=== PATIENT | male | born 1960 | race Caucasian/White ===

== ENCOUNTER 2018-06-23 06:24 | Emergency (ER) | payer MEDICAID ==
--- NOTE | 2018-06-23 07:08 | EDPHY ---
H & P Time Seen by Provider: 06/23/18 07:08 HPI/ROS: CHIEF COMPLAINT: "I want you to give me the weekly cardiograph test" HISTORY OF PRESENT ILLNESS: 58-year-old man has a history of bipolar disorder presents because he"wants to get my care plan transferred up here,"to [place]. Patient says he was recently hospitalized for rapid heart rate and was discharged a couple of weeks ago, his medications bottles include digoxin and Eliquis but he does not know the details. He does not know specifically what hospital but the bottles have a [place] address. Today he denies chest pain shortness of breath palpitations dizziness or lightheadedness or syncope. He states his bipolar disease is stable and denies hallucinations suicidal ideation or homicidal ideation. Tells me wants to get his follow-up cardiology plan transfer to [place]. REVIEW OF SYSTEMS: Eye: no change in vision ENT: no sore throat Cardiac: no chest pain or syncope Pulmonary: no cough or SOB Abdomen: no vomiting, diarrhea, abdominal pain Musculoskeletal: no back pain Skin: no rash Neuro: no headache Constitutional: no fever : no urinary symptoms A comprehensive 10 point review of systems is otherwise negative aside from elements mentioned in the history of present illness. PAST MEDICAL HISTORY: Bipolar disorder, left tibia fracture with hardware Social history: Homeless since mid May General Appearance: Alert and conversant, cooperative. Eyes: No scleral icterus. ENT, Mouth: Normal mucous membranes. Respiratory: Normal respiratory effort, breath sounds equal, lungs are clear to auscultation. Cardiovascular: Regular rate and rhythm. No murmur, no extra heart sounds. Gastrointestinal: Abdomen is soft and non tender. Neurological: Alert, face symmetric, normal motor and sensory in extremities. Skin: Warm and dry, no rashes. Musculoskeletal: No peripheral edema. Psychiatric: Not agitated. Cooperative. He has rambling speech and is very tangential talking about Trumna Polis and his father and his girlfriend and being homeless. Denies suicidal or homicidal ideation, not hallucinating. Emergency Department course/MDM: Patient presents without any acute evidence of medical or surgical emergent condition. 1000: Case management visiting with the patient to facilitate outpatient follow -up in [place]. He does not have evidence of atrial fibrillation or atrial flutter on symptoms or EKG today. He does not meet criteria for mental health hold for his bipolar disorder. He does not have any medical complaints at this time. Case management requesting mental health evaluation which is ordered. 1423: Recommendation of mental health bitumen plant operator to discharge the patient. He does not appear to meet criteria for involuntary 72 hr mental health hold. Smoking Status: Never smoked Constitutional: Initial Vital Signs Temperature (C) 36.9 C 06/23/18 06:33 Heart Rate 91 06/23/18 06:33 Respiratory Rate 18 06/23/18 06:33 Blood Pressure 105/76 06/23/18 06:33 O2 Sat (%) 97 06/23/18 06:33 O2 Delivery Mode Room Air Allergies/Adverse Reactions: No Known Allergies Allergy (Verified 06/23/18 06:34) Home Medications: Medication Instructions Recorded Benztropine Mesylate [Cogentin (*)] 2 mg PO 06/23/18 Divalproex [Depakote] 250 mg PO 06/23/18 Ibuprofen 600 mg PO 06/23/18 Metoprolol Tartrate [Lopressor 50 50 mg PO BID 06/23/18 mg (*)] OLANZapine [Olanzapine] 15 mg PO 06/23/18 Medical Decision Making - Diagnostics EKG Interpretation: 12-lead EKG interpreted by me; official reading is in computer system. My interpretation is sinus rhythm rate 100 with ventricular trigeminy. QTC slightly prolonged. No evidence of atrial fibrillation or flutter. No ischemic changes. - Data Points Laboratory Results: Laboratory Results 06/23/18 11:00 06/23/18 11:00 06/23/18 06/23/18 06/23/18 12:00 11:00 11:00 WBC 7.32 10^3/uL 10^3/uL (3.80-9.50) RBC 4.22 10^6/uL L 10^6/uL (4.40-6.38) Hgb 13.7 g/dL g/dL (13.7-17.5) Hct 40.1 % % (40.0-51.0) MCV 95.0 fL fL (81.5-99.8) MCH 32.5 pg pg (27.9-34.1) MCHC 34.2 g/dL g/dL (32.4-36.7) RDW 14.0 % % (11.5-15.2) Plt Count 228 10^3/uL 10^3/uL (150-400) MPV 11.0 fL fL (8.7-11.7) Neut % (Auto) 52.0 % % (39.3-74.2) Lymph % (Auto) 34.4 % % (15.0-45.0) Reynolds % (Auto) 10.5 % % (4.5-13.0) Eos % (Auto) 2.0 % % (0.6-7.6) Baso % (Auto) 0.8 % % (0.3-1.7) Nucleat RBC Rel Count 0.0 % % (0.0-0.2) Absolute Neuts (auto) 3.80 10^3/uL 10^3/uL (1.70-6.50) Absolute Lymphs (auto) 2.52 10^3/uL 10^3/uL (1.00-3.00) Absolute Monos (auto) 0.77 10^3/uL 10^3/uL (0.30-0.80) Absolute Eos (auto) 0.15 10^3/uL 10^3/uL (0.03-0.40) Absolute Basos (auto) 0.06 10^3/uL 10^3/uL (0.02-0.10) Absolute Nucleated RBC 0.00 10^3/uL 10^3/uL (0-0.01) Immature Gran % 0.3 % % (0.0-1.1) Immature Gran # 0.02 10^3/uL 10^3/uL (0.00-0.10) Sodium 137 mEq/L mEq/L (135-145) Potassium 3.5 mEq/L mEq/L (3.5-5.2) Chloride 101 mEq/L mEq/L (97-110) Carbon Dioxide 29 mEq/l mEq/l (22-31) Anion Gap 7 mEq/L mEq/L (6-14) BUN 18 mg/dL mg/dL (7-23) Creatinine 0.9 mg/dL mg/dL (0.7-1.3) Estimated GFR > 60 Glucose 99 mg/dL mg/dL (70-100) Calcium 8.9 mg/dL mg/dL (8.5-10.4) Urine Opiates Screen NEGATIVE (NEGATIVE) Urine Barbiturates NEGATIVE (NEGATIVE) Ur Phencyclidine Scrn NEGATIVE (NEGATIVE) Ur Amphetamine Screen NEGATIVE (NEGATIVE) U Benzodiazepines Scrn NEGATIVE (NEGATIVE) Urine Cocaine Screen NEGATIVE (NEGATIVE) U Marijuana (THC) Screen NEGATIVE (NEGATIVE) Ethyl Alcohol < 10 mg/dL mg/dL (0-10) Departure - Departure Disposition: Home, Routine, Self-Care Clinical Impression: History of atrial flutter Bipolar disorder Qualifiers: Active/Remission status: remission status unspecified Qualified Code(s): F31.9 - Bipolar disorder, unspecified Condition: Good Instructions: Additional Information, Bipolar Disorder (ED) Referrals: Grant Cooley MD [Medical Doctor] - As per Instructions [facility],. [Clinic] - As per Instructions
--- NOTE | 2018-06-23 07:50 | CPEKG ---
Test Reason : OPEN Blood Pressure : / mmHG Vent. Rate : 102 BPM Atrial Rate : 091 BPM P-R Int : 145 ms QRS Dur : 082 ms QT Int : 386 ms P-R-T Axes : 069 013 064 degrees QTc Int : 503 ms Sinus tachycardia Ventricular trigeminy Minimal ST depression, anterolateral leads Prolonged QT interval Confirmed by Mo Rhoades ([id number]) on 06/23/2018 7:50:00 AM Referred By: Confirmed By:Mo Rhoades
[2018-06-23 11:12] LABS: PLATELET COUNT 228 10^3/uL (150-400)
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
[2018-06-23 14:37] VITALS: BP 123/83
--- NOTE | 2018-06-23 15:21 | ASMTTLCEVL ---
TLC Evaluation - Basic Information Evaluation Start Date and 06/23/2018 01:45 PM Time Hospital Status Answers: Voluntary Patient statement Notes: "I'm here because I had some questions about my medication'" Narrative Notes: The patient is a 58 y/o male with a hx of Bi-polar DIsorder. He is homeless and living in [place], [place]. The patient presented voluntarily to the ED for a heart condition and questions regardingmedication that had been prescribed at [facility] where he had been a pt until 06/21. According to [facility] staff, the patient presented to the ED for a heart condition. The patient presented as manic, delusional, and paranoid. His speech is rapid, pressured, and rambling. 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 He reported recent medication changes. He reported getting "two hours" of sleep yesterday. When interviewed by this senior writer following pt's 2 hour nap, he was oriented to time, place and person. He denied suicidal, parasuicidal, homicidal ideation, urges or behaviors. Pt denied any current auditory/visual hallucinations. He reports that he came to the hospital a he had some questions about his meds. If discharged, pt would go to the [facility] and followup with MD bee. He is an open client of [facility]. Per [facility] worker, Barbi, the patient was seen by Dr. Kilgore on 06/03/18. He was also evaluated by a [facility] seismic prospecting supervisor, Bren Rene who recommend ATU level of care (See fax attached [facility] report). She reported recent medication changes including increasing Depakote and decreasing Lamictal. The patient has been sober from [facility] for two years; he replased on 05/01/18. The patient admitted to [facility] on 06/09/18 and was discharged on 06/21/18. The nurse at [facility] reported that the patient denied premature discharge stating that he was "ready. cheerful, and had a plan." She confirmed with the psychiatrist, Sulma Colby MD that the patient was appropriate for discharge. The nurse reported that he planned to catch a bus to [place]. At this time, pt does not meet the criteria for in-pt psychiatric hospitalization as he does not appear to be in imminent danger for self harm or harm to others and does not appear to be gravely disabled. Diagnosis History Notes: Pt has a long history of Mental Illness since his college years. He is daignosed with Bi-polar Disorder Prior suicide attempts Notes: Pt denies Prior hospitalizations Notes: Many past hospitalizations. Was at [facility] until 06/21/2018. Treatment Responses Notes: Pt reports that his medication is helpful History of violence Notes: Pt denies Therapist: [facility] Psychiatrist: Dr. Kilgore Medications (name, dosage, route, freq uency) Notes: Lamictal, 150mg, once, BID Depakote, 500mg, ER, two tablets, HS & 250mg, one tablet, HS Zyprexa Allergies/Reaction Notes: Denies Sleep Notes: Has some difficulty falling asleep Appetite Notes: Good Medical/Surgical history Notes: Pt has a heart condition Substance use history (frequency, intensity, his tory, duration) Notes: Past history of alcohol abuse. Tox screen was negative. Pt denies drug use. Family composition Notes: Pt reports thatmother is and father is an 85 y/o retired MD living in [place] Need for family Answers: No participation in patient's care Family psychiatric/substance abuse history Notes: Unknown Developmental history Notes: Grew up in 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 Did not take the bar Work history Notes: Unenployed at present Notes: N?A Legal Notes: M/A Oriental Orthodox/Spiritual Notes: N/A Leisure Notes: Reading Collateral Notes: The collateral data was obtained from current and previous [facility] ed records/staff, 27-65 M1, [facility] report/records/staff, and previous providers: Chris. Patient's strengths Answers: Intelligent (Please select at least TWO strengths): Motivated for Treatment Willingness TLC Evaluation - Mental Status Exam Appearance: Answers: Disheveled Eye Contact: Answers: Good/Direct Mood: Answers: Euthymic Affect: Answers: Cheerful Congruent w/ Mood Behavior: Answers: Appropriate Cooperative Speech: Answers: Clear Coherent Circumstantial Thought Process: Answers: Organized Oriented Alert Insight: Answers: Fair Judgement: Answers: Fair Manic Signs/Symptoms Answers: Grandiosity Hallucinations: Answers: None Pt reported to have Answers: No suicidal/self-injuring ideation/behavior? Pt reported to be making Answers: No suicidal/self-injuring threats? Pt reported to have Answers: No aggression/assault ideation/behavior? Pt reported to be making Answers: No aggression/assault threats? Pt exhibits inability to Answers: No care for self/grave disability? History of Answers: No suicidal/self-injuring ideation, behavior, or threats? History of Answers: No aggressive/assaultive ideation, behavior, or threats? History of serious Answers: No physical harm to self/others while in treatment setting? [facility] Evaluation - Suicide/Homicide Risk Suicide Risk Factors: Answers: Bipolar Disorder Inadequate Social Support Lack of Social Support Lack/Loss of Employment Single Unstable Living Situation Homicide/violence risk Answers: None factors: Current Suicidal Answers: No Ideation? Current Suicidal Ideation Answers: No in the Past 48 Hours? Current Suicidal Ideation Answers: No in the Past Month? Suicide Internal Answers: Kip with Stress Protective Factors: Suicide External Answers: None Protective Factors: Ranking of patient's Answers: Low suicidal risk: Ranking of patient's Answers: Low homicidal risk: [facility] Evaluation - Wrap-up AXIS I Diagnosis (include DSM-V and ICD-10 codes), must also be entered in [employer], which is the source of truth. Notes: 296.89 (F31.81) Bipolar II Disorder Evaluation End Date and 06/23/2018 03:15 PM Time (HH:MM): Date Signed: 06/23/2018 03:20 PM Electronically Signed By:Tessa Aguila
== END 2018-06-23 14:50 | disposition home or self-care (01) ==
LOC: EDUNIT#
DX: F31.9 Bipolar disorder, unspecified (principal); Z86.79 Personal history of other diseases of the circulatory system; Z79.899 Other long term (current) drug therapy; Z59.0 Homelessness
CPT/HCPCS: 80305; G0480